=== PATIENT | male | born 1940 | race African-American/Black ===

== ENCOUNTER 2020-05-11 12:22 | Emergency (ER) | payer OTHER ==
[~2020-05-11] VITALS: Ht 195.6 cm; Wt 115.7 kg
[2020-05-11 12:36] VITALS: BP 150/88
[2020-05-11] MEDS ORDERED: ASPirin 81 mg TAB PO ONE (13:45)
== END 2020-05-11 15:18 | disposition left against medical advice (07) ==
LOC: ER 12:22
DX: R07.89 Other chest pain (principal); Z53.21 Procedure and treatment not carried out due to patient leaving prior to being seen by health care provider
CPT/HCPCS: 71045